=== PATIENT | female | born 1955 | race Caucasian/White ===

== ENCOUNTER 2020-12-16 08:20 | Day surgery (SDC) | payer MEDICARE, OTHER ==
[2020-12-16] MEDS ORDERED: Depo-Medrol 40 MG/ML IM ONE (08:21)
[2020-12-16] MEDS ORDERED: LIDOCAINE HCL 2% 100 MG/5 ML IJ ONE (08:21)
[2020-12-16] MEDS ORDERED: DIPRIVAN 200 MG/20 ML IV ONE (10:02)
--- NOTE | 2020-12-16 15:56 | XRAY ---
45 seconds of fluoroscopy was used in surgery for a bilateral L4-S1 MBB.
[2020-12-16] MEDS ORDERED: Lactated Ringers 1,000 ML IV ONE (17:30)
== END 2020-12-16 10:36 | disposition home or self-care (01) ==
LOC: SDC-PAIN 08:20
PROVIDERS: ATTEND Psychiatry & Neurology Pain Medicine
DX: M47.816 Spondylosis without myelopathy or radiculopathy, lumbar region (principal); E11.9 Type 2 diabetes mellitus without complications; Z79.899 Other long term (current) drug therapy
CPT/HCPCS: 64493; 64494; 72100; 77002; 82947; J1030; J2704

== ENCOUNTER 2021-01-13 12:09 | Day surgery (SDC) | payer MEDICARE, OTHER ==
[2021-01-13] MEDS ORDERED: BUPIVACAINE 0.5% VIAL IJ ONE (12:10)
[2021-01-13] MEDS ORDERED: Depo-Medrol 40 MG/ML IM ONE (12:10)
[2021-01-13] MEDS ORDERED: Lactated Ringers 1,000 ML IV ONE (16:36)
--- NOTE | 2021-01-13 16:36 | XRAY ---
Indication: Bilateral L4-S1 MBB. Intraoperative fluoroscopy provided for 30 seconds. Single digital spot image submitted for interpretation demonstrates posterior needle tips projecting over the expected left and right L4-S1 nerve roots. Correlate with intraoperative findings/report.
--- NOTE | 2021-01-13 17:01 | XRAY ---
30 seconds fluoroscopy time in surgery for bilateral L4-S1 MBB.
== END 2021-01-13 14:07 | disposition home or self-care (01) ==
LOC: SDC-PAIN 12:09
PROVIDERS: ATTEND Psychiatry & Neurology Pain Medicine
DX: M47.816 Spondylosis without myelopathy or radiculopathy, lumbar region (principal); E11.9 Type 2 diabetes mellitus without complications; Z79.899 Other long term (current) drug therapy
CPT/HCPCS: 64493; 64494; 72020; 77002; 82947; J1030

== ENCOUNTER 2021-05-19 08:18 | Day surgery (SDC) | payer MEDICARE, OTHER ==
[2021-05-19] MEDS ORDERED: Xylocaine 1% Vial 30 ML PF IJ ONE (08:19)
[2021-05-19] MEDS ORDERED: BUPIVACAINE 0.5% VIAL IJ ONE (08:19)
[2021-05-19] MEDS ORDERED: Depo-Medrol 40 MG/ML IM ONE (08:19)
[2021-05-19] MEDS ORDERED: Lactated Ringers 1,000 ML IV ONE (08:50)
[2021-05-19] MEDS ORDERED: DIPRIVAN 200 MG/20 ML IV ONE (09:57)
--- NOTE | 2021-05-19 12:20 | XRAY ---
Indication: Left L4-S1 RFA. Intraoperative fluoroscopy provided for 39 seconds. 3 digital spot image submitted for interpretation demonstrates posterior needle tips projecting over the expected left L4-S1 nerve roots. Correlate with intraoperative findings/report.
--- NOTE | 2021-05-19 12:31 | XRAY ---
39 seconds fluoroscopy time in surgery for left L4-S1 RFA.
== END 2021-05-19 10:26 | disposition home or self-care (01) ==
LOC: SDC-PAIN 08:18
PROVIDERS: ATTEND Psychiatry & Neurology Pain Medicine
DX: M47.816 Spondylosis without myelopathy or radiculopathy, lumbar region (principal); E11.9 Type 2 diabetes mellitus without complications; I10 Essential (primary) hypertension; Z79.899 Other long term (current) drug therapy
CPT/HCPCS: 64635; 64636; 72100; 77002; 82947; J1030; J2001; J2704

== ENCOUNTER 2021-05-26 08:01 | Day surgery (SDC) | payer MEDICARE, OTHER ==
[2021-05-26] MEDS ORDERED: Xylocaine 1% Vial 30 ML PF IJ ONE (08:02)
[2021-05-26] MEDS ORDERED: BUPIVACAINE 0.5% VIAL IJ ONE (08:02)
[2021-05-26] MEDS ORDERED: Depo-Medrol 40 MG/ML IM ONE (08:02)
[2021-05-26] MEDS ORDERED: DIPRIVAN 200 MG/20 ML IV ONE (08:56)
[2021-05-26] MEDS ORDERED: Ketamine HCl 50 MG/ML ONE (08:57)
[2021-05-26] MEDS ORDERED: Lactated Ringers 1,000 ML IV ONE (09:21)
--- NOTE | 2021-05-26 10:17 | XRAY ---
Indication: Right L4-S1 RFA. Intraoperative fluoroscopy provided for 30 seconds. 3 digital spot image submitted for interpretation demonstrates posterior needle tips projecting over the right L4-S1 nerve roots. Correlate with intraoperative findings/report.
--- NOTE | 2021-05-26 10:43 | XRAY ---
30 seconds of fluoroscopy was used in surgery for a right L4-S1 RFA.
== END 2021-05-26 09:25 | disposition home or self-care (01) ==
LOC: SDC-PAIN 08:01
PROVIDERS: ATTEND Psychiatry & Neurology Pain Medicine
DX: M47.816 Spondylosis without myelopathy or radiculopathy, lumbar region (principal); E11.9 Type 2 diabetes mellitus without complications; Z79.899 Other long term (current) drug therapy
CPT/HCPCS: 64635; 64636; 72100; 77002; 82947; J1030; J2001; J2704

== ENCOUNTER 2021-12-29 06:59 | Day surgery (SDC) | payer MEDICARE, OTHER ==
[2021-12-29] MEDS ORDERED: Marcaine Mpf 0.5% Vial 30 Ml IJ ONE (07:00)
[2021-12-29] MEDS ORDERED: Depo-Medrol 40 MG/ML IM ONE (07:00)
[2021-12-29] MEDS ORDERED: DIPRIVAN 200 MG/20 ML IV ONE (08:42)
--- NOTE | 2021-12-29 10:07 | XRAY ---
Indication: Left SI joint injection. Intraoperative fluoroscopy provided for 16 seconds. 2 digital spot image submitted for interpretation demonstrate posterior needle tip projecting over the inferior left SI joint. Correlate with intraoperative findings/report.
[2021-12-29] MEDS ORDERED: Lactated Ringers 1,000 ML IV ONE (10:52)
--- NOTE | 2021-12-29 12:07 | XRAY ---
16 seconds of fluoroscopy was used in surgery for a left sacroiliac joint injection.
== END 2021-12-29 09:08 | disposition home or self-care (01) ==
LOC: SDC-PAIN 06:59
PROVIDERS: ATTEND Psychiatry & Neurology Pain Medicine
DX: M46.1 Sacroiliitis, not elsewhere classified (principal); E11.9 Type 2 diabetes mellitus without complications; Z79.899 Other long term (current) drug therapy
CPT/HCPCS: 27096; 72170; 77002; 82947; G0260; J1030; J2704

== ENCOUNTER 2022-01-19 06:38 | Day surgery (SDC) | payer MEDICARE, OTHER ==
[2022-01-19] MEDS ORDERED: Depo-Medrol 40 MG/ML IM ONE (06:39)
[2022-01-19] MEDS ORDERED: Marcaine Mpf 0.5% Vial 30 Ml IJ ONE (06:39)
[2022-01-19] MEDS ORDERED: DIPRIVAN 200 MG/20 ML IV ONE (08:19)
[2022-01-19] MEDS ORDERED: Lactated Ringers 1,000 ML IV ONE (10:14)
--- NOTE | 2022-01-19 11:15 | XRAY ---
13 seconds of fluoroscopy was used in surgery for a right SI joint injection.
--- NOTE | 2022-01-19 11:16 | XRAY ---
Indication: Right SI joint injection. Intraoperative fluoroscopy provided for 13 seconds. 2 digital spot image submitted for interpretation demonstrates posterior needle tip projecting over the inferior right SI joint. Correlate with intraoperative findings/report.
== END 2022-01-19 08:40 | disposition home or self-care (01) ==
LOC: SDC-PAIN 06:38
PROVIDERS: ATTEND Psychiatry & Neurology Pain Medicine
DX: M46.1 Sacroiliitis, not elsewhere classified (principal); E11.9 Type 2 diabetes mellitus without complications; Z79.899 Other long term (current) drug therapy
CPT/HCPCS: 27096; 72170; 77002; 82947; G0260; J1030; J2704

== ENCOUNTER 2022-02-09 07:15 | Day surgery (SDC) | payer MEDICARE, OTHER ==
[2022-02-09] MEDS ORDERED: XYLOCAINE-MPF 1% 5ML SDV IJ ONE (07:16)
[2022-02-09] MEDS ORDERED: BUPIVACAINE 0.5% VIAL IJ ONE (07:16)
[2022-02-09] MEDS ORDERED: Depo-Medrol 40 MG/ML IM ONE (07:16)
[2022-02-09] MEDS ORDERED: DIPRIVAN 200 MG/20 ML IV ONE ×2 (09:16→09:28)
--- NOTE | 2022-02-09 10:29 | XRAY ---
Indication: Right L4-S1 RFA. Intraoperative fluoroscopy provided for 1 minute 3 seconds. 6 digital spot images submitted for interpretation demonstrates posterior needle tips projecting over the expected right L4-S1 nerve roots. Correlate with intraoperative findings/report.
[2022-02-09] MEDS ORDERED: Lactated Ringers 1,000 ML IV ONE (10:34)
--- NOTE | 2022-02-09 10:52 | XRAY ---
1 minute 3 seconds of fluoroscopy was used in surgery for a right L4-S1 RFA.
== END 2022-02-09 09:50 | disposition home or self-care (01) ==
LOC: SDC-PAIN 07:15
PROVIDERS: ATTEND Psychiatry & Neurology Pain Medicine
DX: M47.816 Spondylosis without myelopathy or radiculopathy, lumbar region (principal); E11.9 Type 2 diabetes mellitus without complications; Z79.899 Other long term (current) drug therapy
CPT/HCPCS: 64635; 64636; 72100; 77002; 82947; J1030; J2704

== ENCOUNTER 2022-04-13 06:45 | Day surgery (SDC) | payer MEDICARE, OTHER ==
[2022-04-13] MEDS ORDERED: Xylocaine 1% Vial 30 ML PF IJ ONE (06:46)
[2022-04-13] MEDS ORDERED: Depo-Medrol 40 MG/ML IM ONE (06:46)
[2022-04-13] MEDS ORDERED: BUPIVACAINE 0.5% VIAL IJ ONE (06:46)
[2022-04-13] MEDS ORDERED: DIPRIVAN 200 MG/20 ML IV ONE (08:05)
--- NOTE | 2022-04-13 09:47 | XRAY ---
Indication: Left L4-S1 RFA. Intraoperative fluoroscopy provided for 53 seconds. 6 digital spot images submitted for interpretation demonstrates posterior needle tips projecting over the left L4-S1 nerve roots. Correlate with intraoperative findings/report.
[2022-04-13] MEDS ORDERED: Lactated Ringers 1,000 ML IV ONE (10:00)
--- NOTE | 2022-04-13 12:32 | XRAY ---
53 seconds of fluoroscopy was used in surgery for a left L4-S1 RFA.
== END 2022-04-13 08:45 | disposition home or self-care (01) ==
LOC: SDC-PAIN 06:45
PROVIDERS: ATTEND Psychiatry & Neurology Pain Medicine
DX: M47.816 Spondylosis without myelopathy or radiculopathy, lumbar region (principal); E11.9 Type 2 diabetes mellitus without complications; Z79.899 Other long term (current) drug therapy
CPT/HCPCS: 64635; 64636; 72100; 77002; 82947; J1030; J2001; J2704

== ENCOUNTER 2022-11-23 10:16 | Day surgery (SDC) | payer MEDICARE, OTHER ==
[2022-11-23] MEDS ORDERED: Depo-Medrol 40 MG/ML IM ONE (10:17)
[2022-11-23] MEDS ORDERED: BUPIVACAINE 0.5% VIAL IJ ONE (10:17)
[2022-11-23] MEDS ORDERED: DIPRIVAN 200 MG/20 ML IV ONE (11:47)
--- NOTE | 2022-11-23 13:48 | XRAY ---
Indication: Bilateral SI joint injection. Intraoperative fluoroscopy provided for 31 seconds. 4 digital spot images submitted for interpretation demonstrates posterior needle tip projecting over the left and right SI joint. Correlate with intraoperative findings/report.
--- NOTE | 2022-11-23 13:52 | XRAY ---
31 seconds of fluoroscopy was used in surgery for a bilateral sacroiliac joint injection.
[2022-11-23] MEDS ORDERED: Lactated Ringers 1,000 ML IV ONE (13:56)
== END 2022-11-23 12:20 | disposition home or self-care (01) ==
LOC: SDC-PAIN 10:16
PROVIDERS: ATTEND Psychiatry & Neurology Pain Medicine
DX: M46.1 Sacroiliitis, not elsewhere classified (principal); E11.9 Type 2 diabetes mellitus without complications; Z79.899 Other long term (current) drug therapy
CPT/HCPCS: 01992; 27096; 72202; 77002; 82947; G0260; J1030; J2704

== ENCOUNTER 2023-04-12 07:41 | Day surgery (SDC) | payer MEDICARE, OTHER ==
[2023-04-12] MEDS ORDERED: LIDOCAINE HCL 1% 50 MG/5 ML VL PF IJ ONE (07:42)
[2023-04-12] MEDS ORDERED: Depo-Medrol 40 MG/ML IM ONE (07:42)
[2023-04-12] MEDS ORDERED: BUPIVACAINE 0.5% VIAL IJ ONE (07:42)
[2023-04-12] MEDS ORDERED: DIPRIVAN 200 MG/20 ML IV ONE (09:09)
[2023-04-12] MEDS ORDERED: Lactated Ringers 1,000 ML IV ONE (10:36)
--- NOTE | 2023-04-12 11:46 | XRAY ---
Indication: Right L4-S1 RFA. Intraoperative fluoroscopy provided for 35 seconds. 6 digital spot images submitted for interpretation demonstrates posterior needle tips projecting over the expected right L4-S1 nerve roots. Correlate with intraoperative findings/report.
--- NOTE | 2023-04-12 11:50 | XRAY ---
35 seconds of fluoroscopy was used in surgery for a right L4-S1 RFA.
== END 2023-04-12 09:50 | disposition home or self-care (01) ==
LOC: SDC-PAIN 07:41
PROVIDERS: ATTEND Psychiatry & Neurology Pain Medicine
DX: M47.816 Spondylosis without myelopathy or radiculopathy, lumbar region (principal); E11.9 Type 2 diabetes mellitus without complications; Z79.899 Other long term (current) drug therapy
CPT/HCPCS: 64635; 64636; 72100; 77002; 82947; J1030; J2001; J2704

== ENCOUNTER 2023-04-19 07:54 | Day surgery (SDC) | payer MEDICARE, OTHER ==
[2023-04-19] MEDS ORDERED: BUPIVACAINE 0.5% VIAL IJ ONE (07:55)
[2023-04-19] MEDS ORDERED: XYLOCAINE-MPF 1% 5ML SDV IJ ONE (07:55)
[2023-04-19] MEDS ORDERED: Depo-Medrol 40 MG/ML IM ONE (07:55)
[2023-04-19] MEDS ORDERED: Versed 2 MG/2 ML Injection ONE (09:11)
[2023-04-19] MEDS ORDERED: DIPRIVAN 200 MG/20 ML IV ONE ×2 (09:11→09:15)
[2023-04-19] MEDS ORDERED: Lactated Ringers 1,000 ML IV ONE (10:55)
--- NOTE | 2023-04-19 11:24 | XRAY ---
Indication: Left L4-S1 RFA. Intraoperative fluoroscopy provided for 29 seconds. 6 digital spot images submitted for interpretation demonstrates posterior needle tips projecting over the expected left L4-S1 nerve roots. Correlate with intraoperative findings/report.
--- NOTE | 2023-04-19 11:28 | XRAY ---
29 seconds of fluoroscopy was used in surgery for a left L4-S1 RFA.
== END 2023-04-19 09:39 | disposition home or self-care (01) ==
LOC: SDC-PAIN 07:54
PROVIDERS: ATTEND Psychiatry & Neurology Pain Medicine
DX: M47.816 Spondylosis without myelopathy or radiculopathy, lumbar region (principal); E11.9 Type 2 diabetes mellitus without complications; Z79.899 Other long term (current) drug therapy
CPT/HCPCS: 64635; 64636; 72100; 77002; 82947; J1030; J2250; J2704